=== PATIENT | male | born 1930 | race Caucasian/White ===

== ENCOUNTER 2022-08-07 08:30 | Inpatient (IN) | payer MEDICARE, OTHER ==
[~2022-08-07] VITALS: Ht 165.1 cm; Wt 62.1 kg
--- NOTE | 2022-08-07 08:40 | NUR ---
BIB [facility] FOR FEVER AND TACHYCARDIA. TOLERATING WELL ON ROOM AIR.
[2022-08-07] MEDS ORDERED: ACETAMINOPHEN 650 MG/SUPP.RECT RC ONE ×2 (08:41→09:00)
[2022-08-07] MEDS ORDERED: IV NS 0.9% 1,000 ML BAG IV ONE (09:00)
[2022-08-07 09:03] LABS: BASOPHILS % (AUTO) 0.3 % (0.0-2.0); EOSINOPHILS % (AUTO) 0.2 % (0.0-6.0); HEMATOCRIT 23 % (39-51); HEMOGLOBIN 7.2 g/dL (13.5-17.5); LYMPHOCYTES # (AUTO) 0.7 K/uL (0.8-4.8); LYMPHOCYTES % (AUTO) 5.1 % (20.0-44.0); MEAN CORPUSCULAR HGB CONC 32 g/dl (31.0-36.0); MEAN CORPUSCULAR VOLUME 86 fL (80-96); MONOCYTES # (AUTO) 0.9 K/uL (0.1-1.30); MONOCYTES % (AUTO) 6.1 % (2.0-12.0); NEUTROPHILS # (AUTO) 12.6 K/uL (1.8-8.9); NEUTROPHILS % (AUTO) 88.3 % (43.0-81.0); PLATELET COUNT (AUTO) 213 K/uL (150-450); RED BLOOD CELL COUNT(AUTO) 2.68 MIL/uL (4.5-6.0); WHITE BLOOD COUNT (AUTO) 14.2 K/uL (4.3-11.0)
--- NOTE | 2022-08-07 09:04 | NUR ---
URINE SAMPLE OBTAINED
--- NOTE | 2022-08-07 09:04 | NUR ---
COVID SWAB OBTAINED
--- NOTE | 2022-08-07 09:04 | NUR ---
BLOOD SAMPLES OBTAINED
--- NOTE | 2022-08-07 09:08 | NUR ---
Patient placed on 2 LPM O2 via cannula, now saturating 98%
[2022-08-07 09:25] LABS: CALCIUM, SERUM 7.6 mg/dL (8.5-10.1); CARBON DIOXIDE 26 mmol/L (21-32); CHLORIDE 107 mmol/L (98-107); CREATININE 0.7 mg/dL (0.6-1.3); GLUCOSE 173 mg/dL (74-106); POTASSIUM 3.7 mmol/L (3.5-5.1); SODIUM SERUM 138 mmol/L (136-145); UREA NITROGEN, BLOOD 23 mg/dL (7-18)
[2022-08-07 09:33] LABS: ALANINE AMINOTRANSFERASE 53 U/L (12-78); ALKALINE PHOSPHATASE 453 U/L (46-116); ASPARTATE AMINOTRANSFERASE 94 U/L (15-37); BILIRUBIN,DIRECT 0.5 mg/dL (0.0-0.2); BILIRUBIN,TOTAL 0.7 mg/dL (0.2-1.0); TOTAL PROTEIN, SERUM 7.2 g/dL (6.4-8.2)
[2022-08-07 09:37] LABS: ALBUMIN 0.9 g/dL (3.4-5.0)
--- NOTE | 2022-08-07 09:39 | NUR ---
ROOM ASSIGNED GOING TO TELE 107
[2022-08-07 10:05] LABS: BILIRUBIN,URINE 1+ (NEGATIVE); COLOR,URINE DARK YELLOW (YELLOW); LEUKOCYTE ESTERASE ,URINE NEGATIVE (NEGATIVE); NITRITE, URINE POSITIVE (NEGATIVE); PROTEIN,URINE TRACE mg/dl (NEGATIVE); UGLUCOSE NEGATIVE (NEGATIVE)
[2022-08-07 10:18] LABS: BACTERIA,URINE Many /HPF (None Seen); SQUAMOUS EPITHELIAL CELL,UR Few /HPF (None Seen)
--- NOTE | 2022-08-07 10:32 | NUR ---
EPIC PAGED. AWAITING HOSPITALIST CALLBACK.
--- NOTE | 2022-08-07 10:48 | NUR ---
Report given to CLINT Lovell
[2022-08-07] MEDS ORDERED: CEFTRIAXONE 1GM BAG (ER ONLY) 1 GM/50 ML PIGGYBACK IV ONE ×2 (11:00→11:30)
[2022-08-07] MEDS ORDERED: CEFTRIAXONE 1GM BAG (ER ONLY) 50 ML IV ONE (11:15)
--- NOTE | 2022-08-07 11:26 | NUR ---
1 g rocephin IV administered as ordered
[2022-08-07] MEDS ORDERED: CEFTRIAXONE 1 G in IV D5W 50 ML IV ONE (11:30)
[2022-08-07] MEDS ORDERED: ACET-868 PO (11:57)
[2022-08-07] MEDS ORDERED: CALC500T52 PO (11:57)
[2022-08-07] MEDS ORDERED: CHOL100043 PO (11:57)
[2022-08-07] MEDS ORDERED: ESCI10TA PO (11:57)
[2022-08-07] MEDS ORDERED: DONE5TAB34 PO (11:57)
[2022-08-07] MEDS ORDERED: MAGN400O6 PO (11:57)
[2022-08-07] MEDS ORDERED: NA P133E RC (11:57)
[2022-08-07] MEDS ORDERED: FERR325T23 PO (11:57)
[2022-08-07] MEDS ORDERED: BISA10SU11 RC (11:57)
[2022-08-07] MEDS ORDERED: AMIN30LI2 PO (11:57)
[2022-08-07] MEDS ORDERED: BUSP10TA3 PO (11:57)
[2022-08-07] MEDS ORDERED: CLON0.1T PO (11:57)
[2022-08-07] MEDS ORDERED: TRAZ-182 PO (11:57)
[2022-08-07] MEDS ORDERED: MULT-447 PO (11:57)
--- NOTE | 2022-08-07 11:58 | NUR ---
Patient transferred to [facility] via [facility], all care endorsed to CLINT Lovell
[2022-08-07 12:00] VITALS: BP 116/48
--- NOTE | 2022-08-07 12:00 | NUR ---
RN NEW ADMISSION FROM ER PATIENT TRANSFERRED FROM ER VIA [facility]. RECEIVED REPORT VIA PHONE AT 1045 BEFORE PATIENT'S ARRIVAL FROM [facility] ER NURSE. PATIENT DX IS SEPSIS ON NC 2L O2SAT 100% ON ROOM AIR O2 SAT IS 94%. PATIENT IS ALERT ORIENTED x2 WITH SOME DELAY TO ANSWER QUESTIONS. PATIENT DID NOT COMPLAIN OF ANY PAIN. PATIENT HAS DIAPER ON WITH IV SITE ON LEFT FOREARM #2O INTACT PATENT AND FLUSHING RUNNING NS 75 ML/HR. SACRAL REDNESS NO SKIN BREAKDOWN PHOTOS IN THE CHART. SOME BRUISES ON RIGHT AND LEFT ARM AND 2 SKIN TEAR ON LEFT HAND ONLY. PATIENT HAS NO TEETH OR DENTURES, SWALLOW EVAL STAT ORDERED. MEDICATION CRUSHED AND GIVEN WITH APPLE SAUCE PATIENT WAS ABLE TO SWALLOW. NO S/S OF SOB OR DISTRESS NOTED. CALL WITHIN REACH BED AT LOWEST POSITION ALL SAFETY PRECAUTIONS IMPLEMENTED, WILL CONTINUE THE CARE THROUGHOUT THE SHIFT.
[2022-08-07] MEDS ORDERED: CEFTRIAXONE 1 G in IV D5W 50 ML IV SCH (12:30)
[2022-08-07] MEDS ORDERED: ACETAMINOPHEN 325 MG TABLET PO PRN (13:00)
[2022-08-07] MEDS ORDERED: MAG HYDROX/AL HYDROX/SIMETH 30 ML UDC PO PRN (13:00)
[2022-08-07] MEDS ORDERED: ONDANSETRON HCL/PF 4 MG/2 ML VIAL IVP PRN (13:00)
[2022-08-07] MEDS ORDERED: Z GUARD REMEDY 4 OZ OINT TP PRN (13:00)
[2022-08-07] MEDS ORDERED: MAGNESIUM HYDROXIDE 30 ML UDC PO PRN (13:00)
[2022-08-07] MEDS ORDERED: BISACODYL SUPP (10 MG) 10 MG/SUPP.RECT SUPP.RECT RC PRN (13:00)
[2022-08-07] MEDS ORDERED: HYDROCODONE/APAP 5/325MG TABLET PO PRN (13:00)
[2022-08-07] MEDS: AZITHROMYCIN 250 MG TABLET PO SCH (13:13)
[2022-08-07] MEDS: ENOXAPARIN SODIUM 40 MG/0.4 ML DISP.SYRIN SQ SCH (13:15)
[2022-08-07] MEDS: CEFTRIAXONE 1 G in IV D5W 50 ML IV SCH (14:38)
[2022-08-07 16:00] VITALS: BP 115/58
--- NOTE | 2022-08-07 16:10 | NUR ---
INES NOLEN (NEPHEW) CALLED [facility], TO ASKED ABOUT PATIENT'S CONDITION.
[2022-08-07] MEDS: FERROUS SULFATE (325 MG) 325 MG/TAB TABLET PO SCH (16:43)
[2022-08-07] MEDS ORDERED: busPIRone HCL 10 MG TABLET PO SCH (17:00)
--- NOTE | 2022-08-07 18:59 | NUR ---
RN CLOSING NOTE PATIENT SLEEPING IN BED ON NC 2 L O2 SAT 100% NO S/S OF SOB OR DISTRESS. PATIENT IS A/O X2, BUT CALM AND FOLLOWS COMMAND. LAC #20 RUNNING NS 75 ML/HR INTACT AND FLUSHING. PATIENT ON DIAPER. NO SKIN ISSUE JUST 2 SKIN TEAR ON LEFT ARM COVERED WITH MEPILEX, PHOTO TAKEN AND PLACED IN PATIENT'S CHART. SACRUM AREA IS INTACT. PATIENT OR ROCEPHIN ABX. ENDORSE THE PATIENT TO PICKER/PULLER NURSE FOR MARINE.
--- NOTE | 2022-08-07 19:18 | NUR ---
WASH AND GREASER OPENING NOTE RECEIVED PT AWAKE IN BED. A/O X1-2 WITH CONFUSION. PT ON O2 @ 2LPM VIA NC, TOLERATING WELL. NO SOB OR S/S OF RESPIRATORY DISTRESS. BREATHING EVEN AND UNLABORED. ON EXTERNAL PHOTOLITHOGRAPHIC STRIPPER READING SR 70 BPM. IV ACCESS LFA 20G, INTACT AND PATENT, RUNNING NS @ 75 ML/HR. SAFETY PRECAUTIONS IN PLACE. BED IN LOWEST LOCKED POSITION, HOB ELEVATED, SIDE RAILS UP X3, AND CALL LIGHT AND TABLE WITHIN REACH. ALL NEEDS MET AT THIS TIME.
[2022-08-07 20:00] VITALS: BP 134/67
[2022-08-07] MEDS: TRAZODONE 50 MG TABLET PO SCH (22:00)
[2022-08-07] MEDS: DONEPEZIL 5 MG TABLET PO SCH (22:00)
--- NOTE | 2022-08-07 23:22 | NUR ---
RN NOTE UPON ASSESSMENT, PT NOTED WITH BLADDER DISTENTION. AFTER PALPATING BLADDER, PT URINATED A LITTLE AND THEN STILL RETAINING ABOUT 75 ML. INFORMED BUSINESS SOLUTIONS DIRECTOR CONNELLY WITH NEW ORDER FOR CHACON CATHETER. NEW ORDER NOTED AND CARRIED OUT. CHARGE NURSE ANTOINETTE RAY.
--- NOTE | 2022-08-07 23:56 | NUR ---
RN NOTE CHACON INSERTED USING STERILE TECHNIQUE. DRAINING [place] URINE WITH SEDIMENTATION TO GRAVITY.
[2022-08-08] VITALS: BP 126/69
[2022-08-08 04:00] VITALS: BP 121/54
[2022-08-08] MEDS: IV NS 0.9% 1,000 ML IV PRN ×2 (04:00→22:07)
[2022-08-08 06:32] LABS: BASOPHILS % (AUTO) 0.3 % (0.0-2.0); EOSINOPHILS % (AUTO) 0.6 % (0.0-6.0); HEMATOCRIT 22 % (39-51); HEMOGLOBIN 7.1 g/dL (13.5-17.5); LYMPHOCYTES % (AUTO) 8.3 % (20.0-44.0); MEAN CORPUSCULAR HGB CONC 32 g/dl (31.0-36.0); MEAN CORPUSCULAR VOLUME 86 fL (80-96); MONOCYTES # (AUTO) 0.8 K/uL (0.1-1.30); MONOCYTES % (AUTO) 6.6 % (2.0-12.0); NEUTROPHILS # (AUTO) 9.8 K/uL (1.8-8.9); NEUTROPHILS % (AUTO) 84.2 % (43.0-81.0); PLATELET COUNT (AUTO) 192 K/uL (150-450); WHITE BLOOD COUNT (AUTO) 11.6 K/uL (4.3-11.0)
[2022-08-08 06:52] LABS: CALCIUM, SERUM 7.7 mg/dL (8.5-10.1); CREATININE 0.6 mg/dL (0.6-1.3); MAGNESIUM 1.9 mg/dL (1.8-2.4); PHOSPHORUS 3.5 mg/dL (2.5-4.9); POTASSIUM 3.5 mmol/L (3.5-5.1)
--- NOTE | 2022-08-08 06:55 | NUR ---
ULTRASOUND COORDINATOR CLOSING NOTE PT RESTING IN BED, VERBALLY RESPONSIVE. A/O X1-2 WITH CONFUSION. PT ON O2 @ 2LPM VIA NC, TOLERATING WELL. NO SOB OR S/S OF RESPIRATORY DISTRESS. BREATHING EVEN AND UNLABORED. ON EXTERNAL DIE CAST DIE MAKER READING SR WITH BBB 69 BPM. IV ACCESS LFA 20G, INTACT AND PATENT, RUNNING NS @ 75 ML/HR. WITH CHACON IN PLACE DRAINING URINE BY GRAVITY, DRAINED 175 ML THIS SHIFT. ALL DUE MEDS GIVEN ORDERED. SAFETY PRECAUTIONS IN PLACE AT ALL TIMES. BED IN LOWEST LOCKED POSITION, HOB ELEVATED, SIDE RAILS UP X3, AND CALL LIGHT AND TABLE WITHIN REACH. ALL NEEDS MET AT THIS TIME AND WILL ENDORSE TO ONCOMING NURSE FOR MARINE.
[2022-08-08 07:20] LABS: THYROID STIMULATING HORMONE 5.566 uIU/mL (0.358-3.74)
--- NOTE | 2022-08-08 07:20 | NUR ---
STOCK UNLOADER OPENING NOTE RECEIVED PT ASLEEP IN BED. A/O X1-2 WITH CONFUSION. PT ON O2 @ 2LPM VIA NC, TOLERATING WELL. NO SOB OR S/S OF RESPIRATORY DISTRESS. BREATHING EVEN AND UNLABORED. ON EXTERNAL SHIP ENGINES OPERATING ENGINEER READING SR WITH PVD HR 67BPM. IV ACCESS LFA 20G, INTACT AND PATENT, RUNNING NS @ 75 ML/HR. SAFETY PRECAUTIONS IN PLACE. BED IN LOWEST LOCKED POSITION, HOB ELEVATED, SIDE RAILS UP X3, AND CALL LIGHT AND TABLE WITHIN REACH.CHACON CATHETER IN PLACE DRAINING YELLOW CLEAR URINE.WILL MONITOR
[2022-08-08] MEDS: PANTOPRAZOLE 40 MG TABLET.DR PO SCH (07:45)
[2022-08-08 08:00] VITALS: BP 133/64
[2022-08-08] MEDS: FERROUS SULFATE (325 MG) 325 MG/TAB TABLET PO SCH ×2 (08:27→16:31)
[2022-08-08] MEDS: CHOLECALCIFEROL 1,000 UNIT TABLET (VIT D3) PO SCH (08:27)
[2022-08-08] MEDS: busPIRone 5 MG TABLET PO SCH ×2 (08:27→16:31)
[2022-08-08] MEDS: ESCITALOPRAM OXALATE (10 MG) 10 MG TABLET PO SCH (08:27)
[2022-08-08] MEDS: CALCIUM CARBONATE (1250) 500 MG TABLET PO SCH (08:27)
[2022-08-08 12:00] VITALS: BP 110/61
[2022-08-08] MEDS: ENOXAPARIN SODIUM 40 MG/0.4 ML DISP.SYRIN SQ SCH (12:11)
[2022-08-08] MEDS: CEFTRIAXONE 1 G in IV D5W 50 ML IV SCH (12:11)
[2022-08-08] MEDS: AZITHROMYCIN 250 MG TABLET PO SCH (12:12)
[2022-08-08] MEDS: SOD FERRIC GLUC 125 MG in IV NS 0.9% 100 ML IV SCH (14:31)
[2022-08-08 16:00] VITALS: BP 132/68
--- NOTE | 2022-08-08 19:00 | NUR ---
DIP TANKER CLOSING NOTES: PATIENT S IN BED AWAKE ,A/O X2 ON NC 2 L O2 SAT 100% NO S/S OF SOB OR DISTRESS. BUT CALM AND FOLLOWS COMMAND. LAC #20 RUNNING NS 75 ML/HR INTACT AND FLUSHING. PATIENT ON DIAPER. NO SKIN ISSUE JUST 2 SKIN TEAR ON LEFT ARM COVERED WITH MEPILEX, PHOTO TAKEN AND PLACED IN PATIENT'S CHART. SACRUM AREA IS INTACT.CHACON CATHETER DRAINING DARK YELLOW URINE6.WILL ENDORSE THE PATIENT TO MOTORCOACH DRIVER NURSE FOR MARINE.
--- NOTE | 2022-08-08 19:20 | NUR ---
noc rn opening note received patient in bed, with eyes closed, easy to arouse. patient a/ox1 to name. no s/s of apparent distress on 2lpm of O2 via nc. denies pain at this time. reading NSR 78 bpm with PAC. IV ACCESS on left FA #20g running NS @75mls/hr. cagle catheter draining via gravity clear, dark joseph yellow urine. safety in place-- bed in lowest locked position, side rails up X3, call light within reach. will continue with the plan of care for patient.
[2022-08-08 20:00] VITALS: BP 117/59
[2022-08-08] MEDS: TRAZODONE 50 MG TABLET PO SCH (22:07)
[2022-08-08] MEDS: DONEPEZIL 5 MG TABLET PO SCH (22:07)
[2022-08-09] VITALS (11 sets, daily range): BP systolic 113–135; BP diastolic 54–72
[2022-08-09 06:44] LABS: BASOPHILS % (AUTO) 0.2 % (0.0-2.0); EOSINOPHILS % (AUTO) 0.3 % (0.0-6.0); LYMPHOCYTES # (AUTO) 0.9 K/uL (0.8-4.8); LYMPHOCYTES % (AUTO) 8.1 % (20.0-44.0); MEAN CORPUSCULAR HGB CONC 32 g/dl (31.0-36.0); MEAN CORPUSCULAR VOLUME 87 fL (80-96); MONOCYTES # (AUTO) 0.8 K/uL (0.1-1.30); MONOCYTES % (AUTO) 7.4 % (2.0-12.0); NEUTROPHILS # (AUTO) 8.8 K/uL (1.8-8.9); PLATELET COUNT (AUTO) 177 K/uL (150-450); RED BLOOD CELL COUNT(AUTO) 2.33 MIL/uL (4.5-6.0); WHITE BLOOD COUNT (AUTO) 10.5 K/uL (4.3-11.0)
--- NOTE | 2022-08-09 06:49 | NUR ---
noc rn closing patient in bed with eyes closed, a/ox1, easy to arouse. no s/s of apparent distress on room air. no c/o pain at this time. all needs attended. reading nsr with PAC's 74 bpm. all scheduled meds administered. IV access on the LFA #20g running IV ns @75mls/hr. cagle draining well. safety kept in place the whole shift. will endorse to morning shift rn for continuity of patient care.
[2022-08-09 06:50] LABS: BILIRUBIN,TOTAL 0.4 mg/dL (0.2-1.0); CALCIUM, SERUM 7.4 mg/dL (8.5-10.1); CREATININE 0.6 mg/dL (0.6-1.3); MAGNESIUM 1.8 mg/dL (1.8-2.4); PHOSPHORUS 3.2 mg/dL (2.5-4.9); POTASSIUM 3.3 mmol/L (3.5-5.1); TOTAL PROTEIN, SERUM 6.2 g/dL (6.4-8.2)
[2022-08-09 06:55] LABS: ALBUMIN 0.7 g/dL (3.4-5.0)
[2022-08-09 06:56] LABS: HEMATOCRIT 20 % (39-51); HEMOGLOBIN 6.5 g/dL (13.5-17.5)
--- NOTE | 2022-08-09 07:20 | NUR ---
TERMITE CONTROL TECHNICIAN OPENING NOTE RECEIVED PT ASLEEP IN BED. A/O X1-2 WITH CONFUSION. PT ON O2 @ 2LPM VIA NC, TOLERATING WELL. NO SOB OR S/S OF RESPIRATORY DISTRESS. BREATHING EVEN AND UNLABORED. ON EXTERNAL AUTOMOTIVE MACHINIST APPRENTICE READING SR WITH PVD HR 67BPM. IV ACCESS LFA 20G, INTACT AND PATENT, RUNNING NS @ 75 ML/HR. SAFETY PRECAUTIONS IN PLACE. BED IN LOWEST LOCKED POSITION, HOB ELEVATED, SIDE RAILS UP X3, AND CALL LIGHT AND TABLE WITHIN REACH.CHACON CATHETER IN PLACE DRAINING YELLOW CLEAR URINE.WILL MONITOR
[2022-08-09] MEDS: CHOLECALCIFEROL 1,000 UNIT TABLET (VIT D3) PO SCH (08:38)
[2022-08-09] MEDS: busPIRone 5 MG TABLET PO SCH ×2 (08:38→17:28)
[2022-08-09] MEDS: ESCITALOPRAM OXALATE (10 MG) 10 MG TABLET PO SCH (08:38)
[2022-08-09] MEDS: FERROUS SULFATE (325 MG) 325 MG/TAB TABLET PO SCH ×2 (08:38→17:28)
[2022-08-09] MEDS: CALCIUM CARBONATE (1250) 500 MG TABLET PO SCH (08:39)
[2022-08-09] MEDS: PANTOPRAZOLE 40 MG TABLET.DR PO SCH (08:39)
[2022-08-09 09:31] LABS: BAND % (MANUAL) 2 % (0.0-5.0); LYMPHOCYTES % (MANUAL) 12 % (16-48); MONOCYTES % (MANUAL) 7 % (0-11.0); NEUTROPHILS % (MANUAL) 79 (42-76)
[2022-08-09] MEDS ORDERED: POTASSIUM CHLORIDE 20 MEQ TAB.PRT.SR PO SCH (11:00)
--- NOTE | 2022-08-09 11:10 | NUR ---
RN NOTES: SPOKE TO DR JIMENA MCKENZIE HEMOGLOBIN 6.5 WITH ORDER TO TRANSFUSE 1 UNIT [facility]
[2022-08-09] MEDS: IV NS 0.9% 1,000 ML IV PRN (11:56)
[2022-08-09] MEDS: ENOXAPARIN SODIUM 40 MG/0.4 ML DISP.SYRIN SQ SCH (12:37)
[2022-08-09] MEDS: AZITHROMYCIN 250 MG TABLET PO SCH (12:56)
[2022-08-09] MEDS: CEFTRIAXONE 1 G in IV D5W 50 ML IV SCH (13:27)
[2022-08-09] MEDS: SOD FERRIC GLUC 125 MG in IV NS 0.9% 100 ML IV SCH (14:04)
[2022-08-09] MEDS: ENSURE ENLIVE CHOC 237 ML CAN PO SCH (17:28)
--- NOTE | 2022-08-09 19:30 | NUR ---
SHOPFITTER OPENING NOTE RECEIVED PATIENT FROM AM NURSE, PATIENT IN BED, ASLEEP, A/O X2; STABLE ON ROOM AIR, BREATHING EVENLY AND NO DISTRESS NOTED; WITH CHACON CATHETER IN PLACE; IV ACCESS ON LFA G#20 RUNNING WITH NS AT 75ML/HR AND RIGHT FOREARM G#22 - SALINE LOCK NOTED; SAFETY MEASURES IMPLEMENTED, BED IN LOW AND LOCKED POSITION, SIDE RAILS UP X 3, CALL LIGHT WITHIN REACH; WILL CONTINUE TO MONITOR THROUGHOUT SHIFT
[2022-08-09] MEDS: TRAZODONE 50 MG TABLET PO SCH (21:18)
[2022-08-09] MEDS: DONEPEZIL 5 MG TABLET PO SCH (21:18)
[2022-08-10] VITALS: BP 137/68
[2022-08-10] MEDS: IV NS 0.9% 1,000 ML IV PRN ×2 (03:35→18:39)
[2022-08-10 04:00] VITALS: BP 131/70
[2022-08-10 06:41] LABS: BASOPHILS # (AUTO) 0.1 K/uL (0.0-0.2); BASOPHILS % (AUTO) 0.4 % (0.0-2.0); EOSINOPHILS % (AUTO) 0.4 % (0.0-6.0); HEMATOCRIT 24 % (39-51); HEMOGLOBIN 7.8 g/dL (13.5-17.5); LYMPHOCYTES # (AUTO) 1.1 K/uL (0.8-4.8); LYMPHOCYTES % (AUTO) 9.1 % (20.0-44.0); MEAN CORPUSCULAR HGB CONC 32 g/dl (31.0-36.0); MEAN CORPUSCULAR VOLUME 85 fL (80-96); MONOCYTES % (AUTO) 8.1 % (2.0-12.0); NEUTROPHILS # (AUTO) 10.1 K/uL (1.8-8.9); PLATELET COUNT (AUTO) 168 K/uL (150-450); RED BLOOD CELL COUNT(AUTO) 2.87 MIL/uL (4.5-6.0); WHITE BLOOD COUNT (AUTO) 12.3 K/uL (4.3-11.0)
[2022-08-10 06:53] LABS: BILIRUBIN,TOTAL 0.6 mg/dL (0.2-1.0); CALCIUM, SERUM 7.6 mg/dL (8.5-10.1); CREATININE 0.6 mg/dL (0.6-1.3); MAGNESIUM 1.8 mg/dL (1.8-2.4); PHOSPHORUS 2.8 mg/dL (2.5-4.9); POTASSIUM 3.6 mmol/L (3.5-5.1); TOTAL PROTEIN, SERUM 6.2 g/dL (6.4-8.2)
--- NOTE | 2022-08-10 06:55 | NUR ---
IMPLEMENTATION TECHNICIAN CLOSING NOTE PATIENT IN BED, ASLEEP, A/O X2; STABLE ON ROOM AIR, BREATHING EVENLY AND NO DISTRESS NOTED; WITH CHACON CATHETER IN PLACE DRAINING TO DARK YELLOW COLORED URINE; WITH IV ACCESS ON LFA G#20 RUNNING WITH NS AT 75ML/HR AND RIGHT FOREARM G#22 - SALINE LOCK NOTED; ON TELE MONITORING; ADMINISTERED MEDICATIONS PRESCRIBED; PATIENT'S NEEDS ATTENDED; MONITORED PATIENT ACCORDINGLY; SAFETY MEASURES IMPLEMENTED, BED IN LOW AND LOCKED POSITION, SIDE RAILS UP X 3, CALL LIGHT WITHIN REACH; WILL ENDORSE TO AM NURSE FOR MARINE.
--- NOTE | 2022-08-10 07:27 | NUR ---
VALIDATION SCIENTIST NOTE PATIENT IN BED, ASLEEP, A/O X2; STABLE ON ROOM AIR, BREATHING EVENLY AND NO DISTRESS NOTED; WITH CHACON CATHETER IN PLACE DRAINING TO YELLOW COLORED URINE; WITH IV ACCESS ON RT FA G#20 RUNNING WITH NS AT 75ML/HR ON TELE MONITORING; ADMINISTERED MEDICATIONS PRESCRIBED; PATIENT'S NEEDS ATTENDED; MONITORED PATIENT ACCORDINGLY; SAFETY MEASURES IMPLEMENTED, BED IN LOW AND LOCKED POSITION, , CALL LIGHT WITHIN REACH;WILL CONT TO MONITOR CLOSELY Addendum: 08/10/22 at 1337 by SONIA ARIAS RN 07 with edema on scrotum and penis ,will provide gentle care, keep elevated as tolerated
[2022-08-10 07:50] LABS: ALBUMIN 0.7 g/dL (3.4-5.0)
[2022-08-10] MEDS: PANTOPRAZOLE 40 MG TABLET.DR PO SCH (07:56)
[2022-08-10 08:00] VITALS: BP 123/64
[2022-08-10] MEDS: ENSURE ENLIVE CHOC 237 ML CAN PO SCH ×2 (08:00→17:24)
--- NOTE | 2022-08-10 08:00 | NUR ---
radiotelephone technical operator ote rt side pubic are noted with sweeling no c\o pain will inform to
--- NOTE | 2022-08-10 08:12 | NUR ---
WOUND CARE CONSULT: PT PRESENTS WITH LEFT ARM SKIN TEAR, GENERALIZED EDEMA (INCLUDING PENIS/SCROTUM) AND SACRAL INTACT DEEP TISSUE INJURY, ALL PRESENT ON ADMISSION. RECOMMENDATIONS MADE FOR SKIN PROTECTION. DISCUSSED WITH NURSING STAFF. IN AGREEMENT WITH PLAN OF CARE. Addendum: 08/10/22 at 0813 by CHRISTOPHER BUSTAMANTE WNDNU Amended: Links added.
[2022-08-10] MEDS: ESCITALOPRAM OXALATE (10 MG) 10 MG TABLET PO SCH (08:38)
[2022-08-10] MEDS: CALCIUM CARBONATE (1250) 500 MG TABLET PO SCH (08:38)
[2022-08-10] MEDS: busPIRone 5 MG TABLET PO SCH ×2 (08:39→16:03)
[2022-08-10] MEDS: FERROUS SULFATE (325 MG) 325 MG/TAB TABLET PO SCH ×2 (08:39→16:03)
[2022-08-10] MEDS: CHOLECALCIFEROL 1,000 UNIT TABLET (VIT D3) PO SCH (08:39)
--- NOTE | 2022-08-10 09:00 | NUR ---
VALIDATION SOFTWARE FACILITATOR NOTE PER DR ARIZMENDI EKG DONE ,INFORMED FOR RESULT , NO NEW ORDER AT THIS TIME
[2022-08-10 12:00] VITALS: BP 130/55
[2022-08-10] MEDS: CEFTRIAXONE 1 G in IV D5W 50 ML IV SCH (12:11)
[2022-08-10] MEDS: AZITHROMYCIN 250 MG TABLET PO SCH (12:11)
[2022-08-10] MEDS: ENOXAPARIN SODIUM 40 MG/0.4 ML DISP.SYRIN SQ SCH (12:12)
--- NOTE | 2022-08-10 13:34 | NUR ---
telephone cleaner note stool for ob collected
[2022-08-10] MEDS: SOD FERRIC GLUC 125 MG in IV NS 0.9% 100 ML IV SCH (13:50)
--- NOTE | 2022-08-10 14:11 | NUR ---
telephonic nurse note reported to dr jackson that patient has general edema on body ,penis ,scrotum and rt groin is swelling , no new order at this time given
[2022-08-10 16:00] VITALS: BP 124/60
[2022-08-10 16:36] LABS: OCCULT BLOOD STOOL NEGATIVE (NEGATIVE)
--- NOTE | 2022-08-10 17:25 | NUR ---
hospital television rental clerk note reported to dr jackson about urine cx result with order to start Merrem 500 mg iv q8 hour and d\c Rocephin, order carried out
--- NOTE | 2022-08-10 18:00 | NUR ---
BUSINESS INTEGRATION ANALYST NOTE NOTED PATENT WAS COUGHING AFTER EATING KEEP HOB ELEVATED , NOTED HR ON TELE MONITOR 165, BP 140/69 SATURATION 97 %ON 2L ,PLACE ON 2L NC , PER DR RONNIE GOLD TO DO EKG
--- NOTE | 2022-08-10 18:14 | NUR ---
MANAGER TECHNICAL TRAINING OLGA RT AT BEDSIDE EKG DONE , HR 105 AT THIS TIME ,WILL KEEP ON O2 OF O2 AND KEEP HOB ELEVATED AT ALL TIME, AND MONITOR CLOSELY PER EKG HR 99 NO SIGNIFICANT CHANGES FROM PRIOR EKG THIS MORNING
--- NOTE | 2022-08-10 18:24 | NUR ---
BACK WINDER NOTE PATIENT IN BED, ON 2L NC NO SOB NOTED AT THIS TIME,ALERT ORIENTED X1-2, ON TELE MONITOR ST 106 AT THIS TIME, WITH CHACON CATH TO GRAVITY WITH YELLOW COLOR URINE, LT FA AND RT FA HL INTACT AND FLUSHED WELL ,ON IVF ORDERED, BED IN LOWEST AND LOCKED POSITION , CALL LIGHT WITHIN REACH,SAFETY MEASURE IMPLEMENTED, WILL CONT TO MONITOR CLOSELY
--- NOTE | 2022-08-10 18:54 | NUR ---
DISTRIBUTED GENERATION PROJECT MANAGER NOTE REPORTED TO DR ARIZMENDI EKG AND TELE MONITOR STRIP WITH POSSIBLE AFIB RHYTHM , DR ARIZMENDI ORDERED NO CHANGE IN MEDS ,WILL CONT TO MONITOR
--- NOTE | 2022-08-10 19:32 | NUR ---
RN OPENING NOTE; RECEIVED PT IN BED SLEEPING BUT EASY TO AROUSED,IN RM AIR ANABEL WELL SATING 99%,NO SIGN SOB/DISTRESS NOTED,IV ACCESS ON LFA 20G AND RFA 22G WITH NS 75ML/HR INFUSING WELL,HOB ELEVATED,SAFETY MEASURE IN PLACE,CALL LIGHT WITHIN REACH,WILL CONTINUE TO MONITOR.
[2022-08-10 20:00] VITALS: BP 125/68
[2022-08-10] MEDS: MEROPENEM 500 MG in IV NS 0.9% 50 ML IV SCH (21:07)
[2022-08-10] MEDS: TRAZODONE 50 MG TABLET PO SCH (21:07)
[2022-08-10] MEDS: DONEPEZIL 5 MG TABLET PO SCH (21:12)
[2022-08-11] VITALS: BP 144/67
[2022-08-11 04:00] VITALS: BP 144/67
[2022-08-11] MEDS: MEROPENEM 500 MG in IV NS 0.9% 50 ML IV SCH ×2 (04:01→12:55)
--- NOTE | 2022-08-11 06:21 | NUR ---
RN CLOSING NOTE; PATIENT IN BED SLEEPING BUT EASY TO AROUSED,ON RM AIR ANABEL WELL SATING 98%,NO SIGN SOB/DISTRESS NOTED,IV ACCESS ON LFA 20G AND RFA 22G WITH NS 75ML/HR INFUSING WELL,DUE MEDS GIVEN ORDER,ALL NEEDS ATTENDED,FC IN PLACE DRAINING YELLOW URINE NO ODOR NOTED OUTPUT,SAFETY MEASURE IN PLACE,CALL LIGHT WITHIN REACH,WILL ENDORSED TO NEXT SHIFT.
[2022-08-11 06:50] LABS: BASOPHILS % (AUTO) 0.3 % (0.0-2.0); EOSINOPHILS % (AUTO) 0.4 % (0.0-6.0); HEMATOCRIT 25 % (39-51); HEMOGLOBIN 7.7 g/dL (13.5-17.5); LYMPHOCYTES # (AUTO) 1.3 K/uL (0.8-4.8); LYMPHOCYTES % (AUTO) 10.4 % (20.0-44.0); MEAN CORPUSCULAR HGB CONC 31 g/dl (31.0-36.0); MEAN CORPUSCULAR VOLUME 86 fL (80-96); MONOCYTES # (AUTO) 1.1 K/uL (0.1-1.30); MONOCYTES % (AUTO) 8.9 % (2.0-12.0); NEUTROPHILS # (AUTO) 9.7 K/uL (1.8-8.9); PLATELET COUNT (AUTO) 145 K/uL (150-450); RED BLOOD CELL COUNT(AUTO) 2.84 MIL/uL (4.5-6.0); WHITE BLOOD COUNT (AUTO) 12.1 K/uL (4.3-11.0)
[2022-08-11 07:16] LABS: CALCIUM, SERUM 7.5 mg/dL (8.5-10.1); CREATININE 0.6 mg/dL (0.6-1.3); MAGNESIUM 1.7 mg/dL (1.8-2.4); PHOSPHORUS 2.8 mg/dL (2.5-4.9); POTASSIUM 3.2 mmol/L (3.5-5.1)
[2022-08-11] MEDS: ENSURE ENLIVE CHOC 237 ML CAN PO SCH (07:50)
--- NOTE | 2022-08-11 07:51 | NUR ---
RN NOTE NOTIFIED DIETARY ENSURE WAS NOT INCLUDED WITH BREAKFAST. THEY WILL DELIVER FOR LUNCH AND DINNER.
[2022-08-11] MEDS: FERROUS SULFATE (325 MG) 325 MG/TAB TABLET PO SCH (07:55)
[2022-08-11] MEDS: busPIRone 5 MG TABLET PO SCH (07:55)
[2022-08-11] MEDS: ESCITALOPRAM OXALATE (10 MG) 10 MG TABLET PO SCH (07:55)
[2022-08-11] MEDS: PANTOPRAZOLE 40 MG TABLET.DR PO SCH (07:55)
[2022-08-11] MEDS: CHOLECALCIFEROL 1,000 UNIT TABLET (VIT D3) PO SCH (07:56)
[2022-08-11] MEDS: CALCIUM CARBONATE (1250) 500 MG TABLET PO SCH (07:56)
[2022-08-11 08:00] VITALS: BP 144/67
[2022-08-11] MEDS: IV NS 0.9% 1,000 ML IV PRN (08:06)
[2022-08-11] MEDS ORDERED: MERO500V23 IV (09:40)
--- NOTE | 2022-08-11 11:20 | NUR ---
RN NOTE DISCHARGE ORDER RECEIVED. CALLED TO GIVE REPORT TO CORTNEY YOUNG , JAG RN STATED SHE WILL CALL BACK.
[2022-08-11] MEDS ORDERED: MAGNESIUM OXIDE 400 MG TABLET PO ONE (12:00)
[2022-08-11] MEDS: POTASSIUM CHLORIDE 20 MEQ TAB.PRT.SR PO SCH ×2 (12:00→12:55)
--- NOTE | 2022-08-11 12:20 | NUR ---
RN NOTE GAVE REPORT TO CLINT RM AT [place] . PATIENT WILL BE PICKED UP BY [facility] AT 1430. FAMILY NOTIFIED.
[2022-08-11] MEDS: ENOXAPARIN SODIUM 40 MG/0.4 ML DISP.SYRIN SQ SCH (12:56)
[2022-08-11] MEDS: AZITHROMYCIN 250 MG TABLET PO SCH (12:56)
--- NOTE | 2022-08-11 15:04 | NUR ---
RN NOTE PATIENT DISCHARGED VIA GURNEY IN STABLE CONDITION. IV ACCESS ON RW AND LFA 20G INTACT AND PATENT, SL. CHACON CATHETER KEPT IN PLACE, DRAINING URINE VIA GRAVITY. TELE BOX AND ID BAND REMOVED. EXIT PACKET GIVEN TO AMBULANCE CREW. FAMILY NOTIFIED. CHARGE NURSE AWARE.
== END 2022-08-11 15:34 | DRG 689 ==
LOC: ER 08:56 → TELE1 10:11
PROVIDERS: ATTEND Internal Medicine
PROC: 30233N1 Transfusion of Nonautologous Red Blood Cells into Peripheral Vein, Percutaneous Approach (ICD-10-PCS; principal; 2022-08-09)
DX: N39.0 Urinary tract infection, site not specified (principal); G93.41 Metabolic encephalopathy; I69.354 Hemiplegia and hemiparesis following cerebral infarction affecting left non-dominant side; Z16.12 Extended spectrum beta lactamase (ESBL) resistance; E87.20 Acidosis, unspecified; J90 Pleural effusion, not elsewhere classified; J98.11 Atelectasis; E44.0 Moderate protein-calorie malnutrition; G30.9 Alzheimer's disease, unspecified; F02.80 Dementia in other diseases classified elsewhere, unspecified severity, without behavioral disturbance, psychotic disturbance, mood disturbance, and anxiety; Z20.822 Contact with and (suspected) exposure to COVID-19; I10 Essential (primary) hypertension; I25.10 Atherosclerotic heart disease of native coronary artery without angina pectoris; D50.9 Iron deficiency anemia, unspecified; Z79.899 Other long term (current) drug therapy; E88.09 Other disorders of plasma-protein metabolism, not elsewhere classified; E03.9 Hypothyroidism, unspecified; E87.6 Hypokalemia; R79.89 Other specified abnormal findings of blood chemistry; E11.9 Type 2 diabetes mellitus without complications; L89.156 Pressure-induced deep tissue damage of sacral region; S41.112A Laceration without foreign body of left upper arm, initial encounter; X58.XXXA Exposure to other specified factors, initial encounter; Y92.9 Unspecified place or not applicable
CPT/HCPCS: 36415; 71045-TC; 76770-TC; 80048-TC; 80053-TC; 80061-TC; 80076-TC; 81001; 82272-TC; 83540-TC; 83605-TC; 83735-TC; 84100-TC; 84443-TC; 84484-TC; 85025-TC; 85730-TC; 86850-TC; 87040-TC; 87081-TC; 87086-TC; 93307-TC; 97112-TC; 97530-TC; A4223; C9803; G0378; J0696; J1650; J2185; J2916; J7030; J7050; J7060; P9016